=== PATIENT | female | born 1945 | race Caucasian/White ===

== ENCOUNTER → 2019-12-27 | Outpatient (CLI) | payer OTHER ==
[~2019-12-27] MED LIST: ATOR20TA58 PO; BUPR300T92 PO; FOLI0.8C PO; METF500T16 PO; VENL150C PO
== END | disposition home or self-care (01) ==
LOC: LAB 14:57
PROVIDERS: ATTEND Ophthalmology
DX: Z01.818 Encounter for other preprocedural examination (principal); Z11.59 Encounter for screening for other viral diseases
CPT/HCPCS: 36415; U0003

== ENCOUNTER → 2019-12-28 | Outpatient (CLI) | payer OTHER | END | disposition home or self-care (01) | LOC: LAB 14:58 | PROVIDERS: ATTEND Ophthalmology | DX: Z11.59 Encounter for screening for other viral diseases (principal) | CPT/HCPCS: U0003-CS ==

== ENCOUNTER 2019-12-31 08:10 | Day surgery (SDC) | payer OTHER ==
[~2019-12-31 08:10] MED LIST changes: +CIPROFLOXACIN 0.3% OPHTH SOLUTION 5ML BOTTLE. OS ONE; +HYDROmorphone 2 MG/ML VIAL IV PRN; +IV RINGERS,LACTATED 1000ML 1,000 ML IV SCH; +LIDOCAINE 1% PF 2 ML VIAL. ID PRN; +LIDOCAINE 2% JELLY 6ML IN APPLICATOR. OS ONE; +MORPHINE SULFATE 2 MG/ML VIAL. IV PRN; +ONDANSETRON PF 4 MG/2 ML VIAL. IV PRN; +PROCHLORPERAZINE 10 MG/2 ML VIAL. IV PRN; +PROPARACAINE 0.5% OPHTH SOLUTION 15ML BOTTLE. OS ONE; +fentaNYL PF VIAL 100 MCG/2 ML VIAL IV PRN
[2019-12-31] MEDS ORDERED: CHONDROIT-SOD-HYALURONATE KIT. OS ONE (08:15)
[2019-12-31] MEDS ORDERED: NEO/POLYMYX/DEXAMETH OPHTH OINTMENT 3.5GM TUBE. OS ONE (08:15)
[2019-12-31] MEDS: PHENYLEPHRINE 10% OPHTH SOLUTION 5ML BOTTLE. OS SCH ×3 (08:40→08:51)
[2019-12-31] MEDS: CYCLOPENTOLATE 1% OPTH SOLUTION 2ML BOTTLE. OS SCH ×3 (08:40→08:50)
[2019-12-31] MEDS ORDERED: BALANCED SALT IRRIG OPHTH SOLN 15 ML BOTTLE. ONE (09:17)
[2019-12-31] MEDS ORDERED: LIDOCAINE 2% JELLY 6ML IN APPLICATOR. ONE (09:18)
[2019-12-31] MEDS ORDERED: CHONDROIT-SOD-HYALURONATE KIT. ONE (09:18)
[2019-12-31] MEDS ORDERED: LIDOCAINE 1%/PHENYLEPH 1.5% PF OPHTH 1 ML VIAL. ONE (09:43)
[2019-12-31] MEDS ORDERED: CHONDROITIN-SOD-HYALURONATE 0.5 ML DISP.SYRIN. OS ONE (10:00)
[2019-12-31 10:43] VITALS: BP 112/68
--- NOTE | 2019-12-31 11:50 | OP ---
DATE OF SURGERY: 12/31/2019 PREOPERATIVE DIAGNOSES: 1. Open-angle glaucoma of the left eye, mild stage. 2. Cataract of the left eye. PROCEDURES: 1. Goniotomy of the left eye with [place] Dual Blade. 2. Cataract extraction with posterior chamber intraocular lens implantation of the left eye. INDICATIONS: Painless progressive visual loss and difficulty reading and driving and open-angle glaucoma. SURGEON: Aurelia Negrno MD. ANESTHESIA: Topical with monitored anesthesia care. DESCRIPTION OF PROCEDURE: The left eye was prepped with Betadine in the usual sterile fashion and draped. A paracentesis was performed followed by instillation of preservative-free lidocaine and phenylephrine. A temporal clear corneal incision was made followed by instillation of viscoelastic in the anterior chamber and capsulorrhexis. Balanced salt solution was used for hydrodissection and the nucleus removed in a modified stop and chop fashion. The I/A handpiece was used to remove the cortex. Viscoelastic was injected in the anterior chamber and an Robinson model SN60WF with a power of 22.0 diopters was placed into the capsular bag. Please note that prior to the cataract extraction, the goniotomy was performed with repositioning of the head and microscope and the [place] Dual Blade to excise the trabecular meshwork. Once no leak was noted, Maxitrol was placed on the eye and the eye shielded with the shield and the patient sent to the recovery room uneventfully. AURELIA NEGRON MD DR: PERNELL/shelby JOB#: [id number] / [id number]
== END 2019-12-31 10:52 | disposition home or self-care (01) ==
LOC: SURG 08:10 → EDUNIT# 10:00 → SURG 10:52
PROVIDERS: ATTEND Ophthalmology
DX: H40.10X1 Unspecified open-angle glaucoma, mild stage (principal); H54.7 Unspecified visual loss; Z79.899 Other long term (current) drug therapy
CPT/HCPCS: 65820; 66984; 82962; C1780; J0171; J0690; J1580; J3490

== ENCOUNTER 2020-01-14 06:54 | Day surgery (SDC) | payer OTHER ==
[~2020-01-14] VITALS: Ht 157.5 cm; Wt 79.4 kg
[~2020-01-14 06:54] MED LIST changes: +CIPROFLOXACIN 0.3% OPHTH SOLUTION 5ML BOTTLE. OD ONE; -CIPROFLOXACIN 0.3% OPHTH SOLUTION 5ML BOTTLE. OS ONE; -HYDROmorphone 2 MG/ML VIAL IV PRN; -IV RINGERS,LACTATED 1000ML 1,000 ML IV SCH; -LIDOCAINE 1% PF 2 ML VIAL. ID PRN; +LIDOCAINE 2% JELLY 6ML IN APPLICATOR. OD ONE; -LIDOCAINE 2% JELLY 6ML IN APPLICATOR. OS ONE; -MORPHINE SULFATE 2 MG/ML VIAL. IV PRN; -ONDANSETRON PF 4 MG/2 ML VIAL. IV PRN; -PROCHLORPERAZINE 10 MG/2 ML VIAL. IV PRN; +PROPARACAINE 0.5% OPHTH SOLUTION 15ML BOTTLE. OD ONE; -PROPARACAINE 0.5% OPHTH SOLUTION 15ML BOTTLE. OS ONE; -fentaNYL PF VIAL 100 MCG/2 ML VIAL IV PRN
[2020-01-14] MEDS ORDERED: IV RINGERS,LACTATED 1000ML 1,000 ML IV SCH (07:00)
[2020-01-14] MEDS: CYCLOPENTOLATE 1% OPHTH SOLUTION 2ML BOTTLE. OD SCH ×2 (07:38→07:45)
[2020-01-14] MEDS: PHENYLEPHRINE 10% OPHTH SOLUTION 5ML BOTTLE. OD SCH ×2 (07:38→07:45)
[2020-01-14] MEDS ORDERED: NEO/POLYMYX/DEXAMETH OPHTH OINTMENT 3.5GM TUBE. ONE (09:07)
[2020-01-14] MEDS ORDERED: LIDOCAINE 1%/PHENYLEPH 1.5% PF OPHTH 1 ML VIAL. ONE (09:07)
[2020-01-14] MEDS ORDERED: CHONDROIT-SOD-HYALURONATE KIT. ONE (09:07)
[2020-01-14] MEDS ORDERED: LIDOCAINE 2% JELLY 6ML IN APPLICATOR. ONE (09:07)
[2020-01-14] MEDS ORDERED: CHONDROITIN-SOD-HYALURONATE 0.5 ML DISP.SYRIN. ONE (09:07)
--- NOTE | 2020-01-14 09:39 | OP ---
DATE OF SURGERY: 01/14/2020 PREOPERATIVE DIAGNOSES: 1. Open-angle glaucoma of the right eye. 2. Cataract of the right eye. PROCEDURE: 1. Goniotomy with [place] Dual blade. 2. Cataract extraction with posterior chamber intraocular lens implantation of the right eye. SURGEON: Aurelia Negron MD ANESTHESIA: Topical with monitored anesthesia care. DESCRIPTION OF PROCEDURE: The right eye was prepped with Betadine in the usual sterile fashion and draped. A paracentesis was performed followed by instillation of preservative-free lidocaine and phenylephrine. A temporal clear corneal incision was made followed by instillation of viscoelastic. The microscope and head were repositioned to visualize the anterior chamber angle and the [place] Dual blade was used to excise the trabecular meshwork tissue in the nasal angle. The head and microscope were repositioned and a capsulorrhexis was performed followed by hydrodissection. The phacoemulsification handpiece was used to remove the nucleus in a modified stop and chop fashion. The I/A handpiece was used to remove the cortex and viscoelastic was injected in the capsular bag and an [place] model SN60WF with a power of 22.5 diopters was placed into the capsular bag. Balanced salt solution was used to hydrate the corneal wounds and the viscoelastic evacuated with the I/A handpiece. Once no leak was noted, Maxitrol was placed on the eye and the eye shielded and the patient was sent to the recovery room uneventfully. AURELIA NEGRON MD DR: PERNELL/shelby JOB#: [id number] / [id number]
[2020-01-14 09:55] VITALS: BP 133/68
[2020-01-14] MEDS ORDERED: BALANCED SALT IRRIG OPHTH SOLN 15 ML BOTTLE. IO ONE (10:15)
[2020-01-14] MEDS ORDERED: BALANCED SALT IRRIG OPHTH SOLN 15 ML BOTTLE. ONE (10:32)
== END 2020-01-14 09:57 | disposition home or self-care (01) ==
LOC: SURG 06:54 → EDUNIT# 10:00
PROVIDERS: ATTEND Ophthalmology
DX: H25.11 Age-related nuclear cataract, right eye (principal); H40.1110 Primary open-angle glaucoma, right eye, stage unspecified; E78.00 Pure hypercholesterolemia, unspecified; E66.9 Obesity, unspecified; Z68.32 Body mass index [BMI] 32.0-32.9, adult; Z87.39 Personal history of other diseases of the musculoskeletal system and connective tissue; Z90.710 Acquired absence of both cervix and uterus
CPT/HCPCS: 65820; 66984; C1780; J0171; J0690; J1580; J3490